=== PATIENT | male | born 1975 | race Caucasian/White ===

== ENCOUNTER 2025-03-21 05:50 | Day surgery (SDC) | payer BC ==
[2025-03-19 16:15] VITALS: BMI 25.5
[2025-03-21] MEDS: IOHEXOL 180 MG/1 ML ML IJ ONE ×2 (11:43)
[2025-03-21] MEDS: LIDOCAINE HCL 1% PRESERVATIVE FREE - 30ML VIAL IJ ONE ×2 (11:43)
[2025-03-21 13:37] VITALS: BP 128/79; PULSE 54
[2025-03-21 13:41] VITALS: RESP 18; TEMP 98.2
[2025-03-21] MEDS ORDERED: ACETAMINOPHEN 500 MG TABLET (FP) PO PRN (20:56)
== END 2025-03-21 13:48 | disposition home or self-care (01) ==
LOC: JASU-SURG 05:50
PROVIDERS: ATTEND Pain Medicine Pain Medicine
PROC: 3E0R3BZ Introduction of Anesthetic Agent into Spinal Canal, Percutaneous Approach (ICD-10-PCS; 2025-03-21)
PROC: 3E0R33Z Introduction of Anti-inflammatory into Spinal Canal, Percutaneous Approach (ICD-10-PCS; principal; 2025-03-21 11:00)
DX: M54.12 Radiculopathy, cervical region (principal)
CPT/HCPCS: 76000-TC-FY